=== PATIENT | female | born 1985 | race Caucasian/White ===

== ENCOUNTER 2019-01-05 13:58 | Emergency (ER) | payer OTHER ==
--- NOTE | 2019-01-05 16:59 | ED Physician Documentation ---
History of Present Illness - Stated complaint Stated Complaint: ANTHONY - Chief complaint Chief Complaint: Neuro - Additonal information Additional information: This is a 33-year-old female with an unspecified autoimmune disorder, as well as history of headaches, who presents with a headache today. She woke up this morning and she had some sinus pressure, this started off mild but progressed throughout the day To the point that it was a severe pressure-like pain bifrontally. She denies vision changes,Weakness, or numbness. She has had some nausea and vomiting. She states this feels like her typical migraine except that it was somewhat more severe than usual. After she was unable to eat without throwing up she decided to come to the emergency department for further evaluation. She has Taken 400 mg ibuprofen, no other medications. PD PAST MEDICAL HISTORY - Past Medical History Cardiovascular: Hypertension Respiratory: None Endocrine/Autoimmune: HyPOthyroidism GI: GERD : None HEENT: None Psych: Anxiety, Panic attacks Musculoskeletal: None Derm: Eczema - Past Surgical History Past Surgical History: No - Present Medications Home Medications: Ambulatory Orders Medication Instructions Recorded Confirmed Levothyroxine Sodium 75 mcg PO DAILY 08/07/15 11/15/16 Hydroxychloroquine [Plaquenil] 200 mg PO DAILY 01/19/16 11/15/16 - Allergies Allergies/Adverse Reactions: Allergies Allergy/AdvReac Type Severity Reaction Status Date / Time No Known Drug Allergies Allergy Verified 01/05/19 14:06 - Social History Does the pt smoke?: No Does the pt drink ETOH?: No Does the pt have substance abuse?: No - Immunizations Immunizations are current?: Yes PD ED PE NORMAL - Vitals Vital signs reviewed: Yes - General General: Alert and oriented X 3, No acute distress - HEENT HEENT: PERRL - Neck Neck: Supple, no meningeal sign - Cardiac Cardiac: RRR, No murmur - Respiratory Respiratory: No respiratory distress, Clear bilaterally - Abdomen Abdomen: Soft, Non tender, Non distended - Derm Derm: Warm and dry - Extremities Extremities: No deformity - Neuro Neuro: Alert and oriented X 3, early childhood services coordinator 2-12 intact, No motor deficit, No sensory deficit, Normal speech - Psych Psych: Normal mood, Normal affect Results - Vitals Vitals: Vital Signs - 24 hr 01/05/19 01/05/19 14:06 17:25 Temperature 36.8 C Heart Rate 85 93 Respiratory 17 18 Rate Blood Pressure 144/91 H 151/96 H O2 Saturation 100 100 Oxygen O2 Source Room air PD MEDICAL DECISION MAKING - ED course ED course: Pt presents with a headache, which was gradual in onset and typical of her usual headaches in character. Neuro exam normal. Pt is very well-appearing on exam. She has no red flag symptoms to suggest infectious process, hemorrhage, or more nefarious pathology. IV was inserted and migraine cocktail given with very good effect. Given her relief patient was discharged home with return precautions and PCP follow up. Departure - Departure Disposition: 01 Home, Self Care Clinical Impression: Headache Qualifiers: Headache type: unspecified Headache chronicity pattern: acute headache Intractability: not intractable Qualified Code(s): R51 - Headache Condition: Good Instructions: ED Cephalgia Unspecified Follow-Up: KANCHAN AN DO [Primary Care Provider] - Within 1 week Discharge Date/Time: 01/05/19 18:58
[2019-01-05] MEDS ORDERED: METOCLOPRAMIDE 10 MG/2 ML VIAL IVP STA (17:19)
[2019-01-05] MEDS ORDERED: SODIUM CHLORIDE 0.9% 1,000 ML IV ONE (17:19)
[2019-01-05] MEDS ORDERED: ACETAMINOPHEN 325 MG TABLET PO STA (17:19)
[2019-01-05] MEDS ORDERED: KETOROLAC 30 MG/ML VIAL IVP STA (17:19)
[2019-01-05] MEDS ORDERED: diphenhydrAMINE INJ 50 MG/ML VIAL IVP STA (17:20)
[2019-01-05 17:26] VITALS: BP 151/96
== END 2019-01-05 18:58 | disposition home or self-care (01) ==
LOC: ED 13:58
DX: R51 Headache (principal); I10 Essential (primary) hypertension
CPT/HCPCS: 96361; 96374; 96375; 99281; 99283; A9270; J1200; J2765

== ENCOUNTER 2021-11-06 18:53 | Outpatient (CLI) | payer OTHER | END 2021-11-06 23:59 | disposition home or self-care (01) | LOC: LAB.N 18:53 | PROVIDERS: ATTEND Physician Assistant | DX: L02.91 Cutaneous abscess, unspecified (principal) | CPT/HCPCS: 87070; 87205 ==

== ENCOUNTER 2022-03-19 17:53 | Emergency (ER) | payer OTHER ==
[2022-03-19] MEDS ORDERED: CHERRY SYRUP 10 ML UDC PO ONE (19:52)
[2022-03-19] MEDS ORDERED: KETOROLAC 30 MG/ML VIAL IM STA (19:52)
[2022-03-19] MEDS ORDERED: DEXAMETHASONE 10 MG/ML VIAL PO STA (19:52)
--- NOTE | 2022-03-19 20:06 | ED Physician Documentation ---
History of Present Illness - Stated complaint Stated Complaint: MIGRAINE - Chief complaint Chief Complaint: Neuro - Additonal information Additional information: 36-year-old female presents emergency department for evaluation of a migraine h eadache. She reports that she gets migraines frequently and typically takes a triptan at home. She took hers at 1 PM with the onset of the headache but over the course the day it did not get better. She did have nausea and vomiting. She typically gets headaches 2-3 times a month. Denies possibility of . While waiting in the waiting room the headache began to naldo and on exam in the ER she reports that she is nearly pain-free. Review of Systems Constitutional: denies: Fever Neurologic: reports: Headache PD PAST MEDICAL HISTORY - Past Medical History Cardiovascular: Hypertension Respiratory: None Endocrine/Autoimmune: HyPOthyroidism GI: GERD : None HEENT: None Psych: Anxiety, Panic attacks Musculoskeletal: None Derm: Eczema - Past Surgical History Past Surgical History: No - Present Medications Home Medications: Ambulatory Orders Medication Instructions Recorded Confirmed Levothyroxine Sodium 75 mcg PO DAILY 08/07/15 11/15/16 Hydroxychloroquine [Plaquenil] 200 mg PO DAILY 01/19/16 11/15/16 - Allergies Allergies/Adverse Reactions: Allergies Allergy/AdvReac Type Severity Reaction Status Date / Time No Known Drug Allergies Allergy Verified 03/19/22 17:59 - Social History Does the pt smoke?: No Smoking Status: Never smoker Does the pt drink ETOH?: No Does the pt have substance abuse?: No - Immunizations Immunizations are current?: Yes PD ED PE NORMAL - HEENT HEENT: PERRL - Neck Neck: Supple, no meningeal sign, No adenopathy - Cardiac Cardiac: RRR, No murmur - Extremities Extremities: No deformity, No tenderness to palpate - Neuro Neuro: Alert and oriented X 3, resident services coordinator 2-12 intact Eye Opening: Spontaneous Motor: Obeys Commands Verbal: Oriented GCS Score: 15 Results - Vitals Vitals: Vital Signs - 24 hr 03/19/22 17:56 Temperature 36.6 C Heart Rate 86 Respiratory 14 Rate Blood Pressure 170/110 H O2 Saturation 100 Oxygen O2 Source Room air PD Medical Decision Making - ED course Complexity details: considered differential, d/w patient ED course: Well-appearing 36-year-old female presents the emergency department for evaluation of a headache that began this afternoon about 1 PM. It did not respond to her typical dose of triptan though while she was waiting to come back to the exam room her headache began to go away. She has no fevers or meningeal signs. She has no focal neurodeficits. Given that this headache is similar to others/migraine she has had in the past we will defer imaging. I did offer a dose of Decadron to help prevent a rebound migraine. And she was also administered a single dose of Toradol to help supplicate the rest of the headache. She is discharged home in stable condition. We discussed the usual emergent return precautions Departure - Departure Disposition: Home, Self Care Clinical Impression: Migraine headache Qualifiers: Migraine type: unspecified Status migrainosus presence: without status migrainosus Intractability: not intractable Qualified Code(s): G43.909 - Migraine, unspecified, not intractable, without status migrainosus Condition: Stable Record reviewed to determine appropriate education?: Yes Instructions: ED Headache Migraine Comments: You came to the ER today because you developed a headache this afternoon that did not respond to your usual medications. However by the time you got back to the exam room the headache had started to go away. This headache sounds like your typical migraines and I am not sure why the triptan did not respond as it normally does. Here in the ER we did give you a single dose of Toradol which is usually very effective at helping manage migraines. We also gave you a single dose of Decadron. This is a steroid that can help prevent the reoccurrence of the headache. When you get home I encourage you to get well-hydrated by drinking plenty of water and get plenty of sleep. I expect that when you wake in the morning you should be nearly headache free. Return to the ER if you have any uncontrolled vomiting sudden severe or different headache or develop any fevers
[2022-03-19 20:13] VITALS: BP 160/88
== END 2022-03-19 20:15 | disposition home or self-care (01) ==
LOC: ED 17:53
DX: G43.909 Migraine, unspecified, not intractable, without status migrainosus (principal)
CPT/HCPCS: 96372; 99283; A9270